=== PATIENT | male | born 1955 | race Two or more races ===

== ENCOUNTER 2017-05-24 21:48 | Inpatient (IN) | payer MEDICAID, MEDICARE ==
--- NOTE | 2017-05-24 22:04 | ED Physician Chart ---
Chief Complaint/HPI - Patient Information Date Seen:: 05/24/17 Time Seen:: 22:00 Chief Complaint:: agitation History of Present Illness:: pt sent from [place] for increase in agitation. staff report says there was concern from staff about labs but it is unclear what the concern was. pt had low cholesterol...rest of labs seem ok. pt arrives alert and w poor ability to amend his own hx. he is alert and speaking but his speech is very thick and hard to understand and his med hx is poor. he appears to deny any acute pain. no cp . no sob. no fever. no n/v/d. no rash. pt seems moderately labile/excitable..yells at times. speaks to self loudly. Allergies:: Allergies Allergy/AdvReac Type Severity Reaction Status Date / Time clozapine [From Clozaril] Allergy Verified 05/24/17 21:58 Historian:: Patient, EMS, Other Review:: Transfer documents Reviewed Review of Systems - Review of Systems General/Constitutional: No fever, No chills, No weight loss, No weakness, No diaphoresis, No edema, No loss of appetite Skin: No skin lesions, No rash, No bruising Head: No headache, No light-headedness Eyes: No loss of vision, No pain, No diplopia ENT: No earache, No nasal drainage, No sore throat, No tinnitus Neck: No neck pain, No swelling, No thyromegaly, No stiffness, No mass noted Cardio Vascular: No chest pain, No palpitations, No PND, No orthopnea, No edema Pulmonary: No SOB, No cough, No sputum, No wheezing GI: No nausea, No vomiting, No diarrhea, No pain, No melena, No hematochezia, No constipation, No hematemesis G/U: No dysuria, No frequency, No hematuria Musculoskeletal: No bone or joint pain, No back pain, No muscle pain Endocrine: No polyuria, No polydipsia Psychiatric: Prior psych history, No depression, Anxiety, No anxiety, No suicidal ideation, Other (agitation) Hematopoietic: No bruising, No lymphadenopathy Allergic/Immuno: No urticaria, No angioedema Neurological: No syncope, No focal symptoms, No weakness, No paresthesia, No headache, No seizure, No dizziness, Confusion, No vertigo Past Medical History - Past Medical History Past Medical History: HTN, DVT/PE, Dyslipidemia, PUD/GERD, Dementia, Other (' encephalopathy', dvt/pe hx of somekind(?when/pt appears on no anticoagulation ) ) Social History: Care Facility Medication: Reviewed Family Medical History - Family Member Mother History Unknown: Yes Physical Exam - Physical Examination General/Constitutional: Awake, Well-developed, well-nourished, Alert, No distress, GCS 15, Non-toxic appearing, Ambulatory Other Gen/Cons comments:: seems demented. speaking often..sometimes to self. is alert. no focal neuro defecits Head: Atraumatic Eyes: Lids, conjuctiva normal, PERRL, EOMI Skin: Nl inspection, No rash, No skin lesions, No ecchymosis, Well hydrated, No lymphadenopathy ENMT: External ears, nose nl, Nasal exam nl, Lips, teeth, gums nl Neck: Nontender, Full ROM w/o pain, No JVD, No nuchal rigidity, No bruit, No mass, No stridor Respiratory: Nl effort/Exclusion, Clear to Auscultation, No Wheeze/Rhonchi/Rales Cardio Vascular: RRR, No murmur, gallop, rubs, NL S1 S2 GI: No tenderness/rebounding/guarding, No organomegaly, No hernia, Normal BS's, Nondistended, No mass/bruits, No McBurney tenderness : No CVA tenderness Extremities: No tenderness or effusion, Full ROM, normal strength in all extremities, No edema, Normal digits & nails Neuro/Psych: Alert/oriented, DTR's symmetric, Normal sensory exam, Normal motor strength, Mood normal, Normal gait, No focal deficits Misc: normal gait, Normal back, No paraspinal tenderness Labs/Radiology/EKG Results - Lab Results Results: Laboratory Tests 05/24/17 05/24/17 05/24/17 22:14 22:14 22:14 WBC 4.6 L RBC 4.74 Hgb 12.7 L Hct 38.7 L MCV 81.7 MCH 26.9 MCHC Differential 32.9 RDW 15.2 Plt Count 209 MPV 6.3 Neutrophils % 45.0 Lymphocytes % 49.9 Monocytes % 4.5 Eosinophils % 0.1 Basophils % 0.5 Sodium 134 L Potassium 3.6 Chloride 104 Carbon Dioxide 24.6 Anion Gap 9.0 BUN 19 Creatinine 0.6 L Est GFR ( Amer) > 60.0 Est GFR (Non-Af Amer) > 60.0 BUN/Creatinine Ratio 31.7 Glucose 119 H Calcium 9.0 Total Bilirubin 0.3 AST 19 ALT 11 Alkaline Phosphatase 78 Troponin I 0.01 Total Protein 7.5 Albumin 3.5 L Globulin 4.0 Albumin/Globulin Ratio 0.9 L Urine Source Urine Color Urine Clarity Urine pH Ur Specific [place] Urine Protein Urine Glucose (UA) Urine Ketones Urine Blood Urine Nitrate Urine Bilirubin Urine Urobilinogen Ur Leukocyte Esterase Urine RBC Urine WBC Ur Epithelial Cells Urine Bacteria Urine Opiates Screen Urine Methadone Screen Ur Barbiturates Screen Ur Tricyclics Screen Ur Phencyclidine Scrn Amphetamines Screen U Methamphetamines Scrn U Benzodiazepines Scrn U Cocaine Metab Screen U Cannabinoids Screen Ethyl Alcohol < 10 05/24/17 05/24/17 22:45 22:45 WBC RBC Hgb Hct MCV MCH MCHC Differential RDW Plt Count MPV Neutrophils % Lymphocytes % Monocytes % Eosinophils % Basophils % Sodium Potassium Chloride Carbon Dioxide Anion Gap BUN Creatinine Est GFR ( Amer) Est GFR (Non-Af Amer) BUN/Creatinine Ratio Glucose Calcium Total Bilirubin AST ALT Alkaline Phosphatase Troponin I Total Protein Albumin Globulin Albumin/Globulin Ratio Urine Source CLEAN C Urine Color YELLOW Urine Clarity CLEAR Urine pH 6.5 Ur Specific [place] <= 1.005 Urine Protein NEGATIVE Urine Glucose (UA) NEGATIVE Urine Ketones NEGATIVE Urine Blood NEGATIVE Urine Nitrate NEGATIVE Urine Bilirubin NEGATIVE Urine Urobilinogen 0.2 Ur Leukocyte Esterase NEGATIVE Urine RBC 0-2 H Urine WBC 0-2 Ur Epithelial Cells OCCASIONAL Urine Bacteria OCCASIONAL Urine Opiates Screen NEGATIVE Urine Methadone Screen NEGATIVE Ur Barbiturates Screen NEGATIVE Ur Tricyclics Screen NEGATIVE Ur Phencyclidine Scrn NEGATIVE Amphetamines Screen NEGATIVE U Methamphetamines Scrn NEGATIVE U Benzodiazepines Scrn NEGATIVE U Cocaine Metab Screen NEGATIVE U Cannabinoids Screen NEGATIVE Ethyl Alcohol - EKG Interpretations EKG Time:: 23:00 Rate & Rhythm: nsr 73 Phelps: 97 Intervals: qtc 432 Comments:: st/ t waves ok ED Septic Shock - . Is Septic Shock (SBP<90, OR Lactate>4 mmol\L) present?: No Reassessment (Disposition) - Reassessment Reassessment:: 11;19p pt is cussing and yelling at staff constantly for last 10-15 min. he is very angry w staff for no discernable reason and his agitation is disrupting dept. he has a nrml order for ativan in his usual meds..we are giving ativan dose at this time. staff have tried to appease him w no effect. pt calm and sleepy after ativan, manageable now. labs obtainable. 11;30p case dw dr breaux ...has decided to admit Reassessment Condition:: Improved - Diagnosis Diagnosis:: 1 aloc 2 agitation - Patient Disposition Admitted to:: Med/Surg Condition at Disposition:: Improved
[2017-05-24 22:25] LABS: % BASOPHILS 0.5 % (0.0-2.0); % EOSINOPHILS 0.1 % (0.0-5.0); % LYMPHOCYTES 49.9 % (20.0-50.0); % MONOCYTES 4.5 % (2.0-10.0); HEMATOCRIT 38.7 % (39.0-49.0); HEMOGLOBIN 12.7 gm/dL (13.2-17.3); MEAN CELL VOLUME 81.7 fl (80-99); MEAN CORPUSCULAR HEMOGLOBIN 26.9 pg (26.0-30.0); MEAN CORPUSCULAR HGB CONC 32.9 pg (28.0-36.0); MEAN PLATELET VOLUME 6.3 fl; NEUTROPHILE ABSOLUTE 2.1 Th/cmm (1.8-8.0); PLATELET COUNT 209 Th/cmm (150-400); RED BLOOD COUNT 4.74 Mil/cmm (4.30-5.70); RED CELL DISTRIBUTION WIDTH 15.2 % (11.5-20.0); WHITE BLOOD COUNT 4.6 Th/cmm (4.8-10.8)
[2017-05-24 22:40] LABS: ALB/GLOB RATIO 0.9 (1.0-1.8); ALKALINE PHOSPHATASE 78 U/L (34-104); BILIRUBIN,TOTAL 0.3 mg/dL (0.3-1.0); BUN - UREA NITROGEN 19 mg/dL (7-25); BUN/CREATININE RATIO 31.7; CARBON DIOXIDE 24.6 mEq/L (21.0-31.0); CHLORIDE 104 mEq/L (98-107); CREATININE - SERUM 0.6 mg/dL (0.7-1.3); GLUCOSE 119 mg/dL (70-105); POTASSIUM SERUM 3.6 mEq/L (3.5-5.1); SGOT 19 U/L (13-39); SGPT/ALT 11 U/L (7-52); SODIUM SERUM 134 mEq/L (136-145)
[2017-05-24 23:12] LABS: URINE BILIRUBIN NEGATIVE (NEGATIVE); URINE BLOOD NEGATIVE (NEGATIVE); URINE GLUCOSE (UA) NEGATIVE (NEGATIVE); URINE KETONE NEGATIVE (NEGATIVE); URINE PH 6.5 (4.6 - 8.0); URINE PROTEIN NEGATIVE (NEGATIVE); URINE UROBILINOGEN 0.2 E.U./dL (0.2 - 1.0)
[2017-05-24 23:19] LABS: URINE BACTERIA OCCASIONAL /hpf (NONE SEEN); URINE COLOR YELLOW; URINE EPITHELIAL CELLS OCCASIONAL /lpf (FEW); URINE RBC 0-2 /hpf (0-5); URINE WBC 0-2 /hpf (0-5)
[2017-05-24 23:27] LABS: AMPHETAMINE URINE NEGATIVE (NEGATIVE); BARBITURATES URINE NEGATIVE (NEGATIVE); METHADONE URINE NEGATIVE (NEGATIVE)
[2017-05-25 07:35] LABS: HEMOGLOBIN 14.4 gm/dL (13.2-17.3); MEAN CORPUSCULAR HEMOGLOBIN 27.1 pg (26.0-30.0); MEAN PLATELET VOLUME 6.7 fl; PLATELET COUNT 229 Th/cmm (150-400); RED BLOOD COUNT 5.31 Mil/cmm (4.30-5.70); RED CELL DISTRIBUTION WIDTH 15.5 % (11.5-20.0); WHITE BLOOD COUNT 4.8 Th/cmm (4.8-10.8)
[2017-05-25 07:42] LABS: ANION GAP 9.7 (7.0-16.0); BUN - UREA NITROGEN 13 mg/dL (7-25); CALCIUM SERUM 9.4 mg/dL (8.6-10.3); CARBON DIOXIDE 25.5 mEq/L (21.0-31.0); CHLORIDE 103 mEq/L (98-107); CHOLESTEROL 95 mg/dL (<200); CREATININE - SERUM 0.5 mg/dL (0.7-1.3); GLUCOSE 76 mg/dL (70-105); POTASSIUM SERUM 3.2 mEq/L (3.5-5.1); SODIUM SERUM 135 mEq/L (136-145); TRIGLYCERIDES 56 mg/dL (<150)
[2017-05-25 08:06] LABS: HEMATOCRIT 43.5 % (39.0-49.0)
[2017-05-25] MEDS: Aspirin 81mg Chewable Tab PO SCH (09:10)
[2017-05-25] MEDS: Multivitamin w/ Minerals Tab PO SCH (09:10)
[2017-05-25] MEDS: Calcium Carb/Vit D 500 mg/200 U Tab PO SCH (09:11)
[2017-05-25] MEDS: Ferrous Sulfate 325 MG TAB PO SCH (09:45)
[2017-05-25 09:47] LABS: NEUTROPHILS 38 % (40-80); PLATELET ESTIMATE ADEQUATE (NORMAL); PLATELET MORPHOLOGY NORMAL (NORMAL); TOTAL CELLS COUNTED 100
[2017-05-25] MEDS: Pancrelipase Cap ECC PO SCH ×3 (09:53→22:57)
--- NOTE | 2017-05-25 21:14 | Consultation ---
DATE OF CONSULTATION: 05/25/2017 SUBJECTIVE: Staff was spoken to. The patient is interviewed. Mood is noted to be irritable. Affect is constricted. Insight and judgment at this time are noted to be ____. The patient is admitted over here for acute agitation after he was transferred from the [facility] facility. Staff were spoken to. The patient is interviewed. The patient is very dysphoric and has been pacing most of the time on the unit and is not able to provide much of information to me. The patient is getting easily agitated. His chart is reviewed. The patient has been on Depakote and Zyprexa, but the patient's compliance is noted to be very poor. The patient at this time is actively responding to internal stimuli. The patient is very paranoid. PAST PSYCHIATRIC HISTORY: Details are not known. MEDICAL HISTORY AND PHYSICAL EXAMINATION: As requested and done by Dr. Pena. SUBSTANCE ABUSE HISTORY: None. PHYSICAL OR SEXUAL ABUSE HISTORY: None. LEGAL PROBLEMS: None at this time. STRENGTHS AND ASSETS: The patient seems to be motivated for treatment. SOCIAL HISTORY: The patient is a resident of the [facility] facility. MENTAL STATUS EXAMINATION: The patient is a 61-year-old disheveled, looking older than his stated age, superficially cooperative. Eye contact is poor. Mood is noted to be irritable. Affect is constricted. Insight and judgment are very much impaired. Coping skills are noted to be poor. The patient is not able to contract for safety. The patient is very paranoid at this time and has been testing the limits. Attention span and concentration are noted to be poor. The patient's behavior is a clear danger to self and others. The patient is trying to ____. DIAGNOSTIC IMPRESSION: AXIS I: Psychosis, not otherwise specified, rule out schizoaffective disorder. PLAN: To give a dose of Zyprexa and Benadryl now IM if the patient refuses medications p.o. and continue the current medications. I encouraged the patient to verbalize the concerns. Thank you Dr. Pena for allowing me to participate in the care of the patient. [facility]# [id number]
[2017-05-25] MEDS: Atorvastatin Calcium 10 MG TAB PO SCH (22:58)
[2017-05-26] MEDS: Aspirin 81mg Chewable Tab PO SCH (08:54)
[2017-05-26] MEDS: Calcium Carb/Vit D 500 mg/200 U Tab PO SCH (08:54)
[2017-05-26] MEDS: Ferrous Sulfate 325 MG TAB PO SCH (08:54)
[2017-05-26] MEDS: Pancrelipase Cap ECC PO SCH ×3 (08:54→21:41)
[2017-05-26] MEDS: Multivitamin w/ Minerals Tab PO SCH (08:54)
[2017-05-26] MEDS ORDERED: VTE Chemical Prophylaxis Screen/Admission MC PRN (18:50)
--- NOTE | 2017-05-26 19:13 | Internal Medicine Prog Note ---
Internal Medicine Objective - Results Result Diagrams: 05/25/17 06:25 05/25/17 06:25 Recent Labs: Laboratory Last Values WBC 4.8 Th/cmm (4.8-10.8) 05/25/17 06:25 RBC 5.31 Mil/cmm (4.30-5.70) 05/25/17 06:25 Hgb 14.4 gm/dL (13.2-17.3) 05/25/17 06:25 Hct 43.5 % (39.0-49.0) D 05/25/17 06:25 MCV 82.0 fl (80-99) 05/25/17 06:25 MCH 27.1 pg (26.0-30.0) 05/25/17 06:25 MCHC Differential 33.0 pg (28.0-36.0) 05/25/17 06:25 RDW 15.5 % (11.5-20.0) 05/25/17 06:25 Plt Count 229 Th/cmm (150-400) 05/25/17 06:25 MPV 6.7 fl 05/25/17 06:25 Neutrophils % 45.0 % (40.0-80.0) 05/24/17 22:14 Lymphocytes % 49.9 % (20.0-50.0) 05/24/17 22:14 Monocytes % 4.5 % (2.0-10.0) 05/24/17 22:14 Eosinophils % 0.1 % (0.0-5.0) 05/24/17 22:14 Basophils % 0.5 % (0.0-2.0) 05/24/17 22:14 Neutrophils (Manual) 38 % (40-80) L 05/25/17 06:25 Lymphocytes 56 % (20-50) H 05/25/17 06:25 Monocytes 2 % (2-10) 05/25/17 06:25 Atypical Lymphocytes 4 % 05/25/17 06:25 Platelet Estimate ADEQUATE (NORMAL) 05/25/17 06:25 Platelet Morphology NORMAL (NORMAL) 05/25/17 06:25 RBC Morph Micro Appear NORMAL (NORMAL) 05/25/17 06:25 Sodium 135 mEq/L (136-145) L 05/25/17 06:25 Potassium 3.2 mEq/L (3.5-5.1) L 05/25/17 06:25 Chloride 103 mEq/L (98-107) 05/25/17 06:25 Carbon Dioxide 25.5 mEq/L (21.0-31.0) 05/25/17 06:25 Anion Gap 9.7 (7.0-16.0) 05/25/17 06:25 BUN 13 mg/dL (7-25) 05/25/17 06:25 Creatinine 0.5 mg/dL (0.7-1.3) L 05/25/17 06:25 Est GFR ( Amer) > 60.0 ml/min (>90) 05/25/17 06:25 Est GFR (Non-Af Amer) > 60.0 ml/min 05/25/17 06:25 BUN/Creatinine Ratio 26.0 05/25/17 06:25 Glucose 76 mg/dL (70-105) 05/25/17 06:25 Calcium 9.4 mg/dL (8.6-10.3) 05/25/17 06:25 Total Bilirubin 0.3 mg/dL (0.3-1.0) 05/24/17 22:14 AST 19 U/L (13-39) 05/24/17 22:14 ALT 11 U/L (7-52) 05/24/17 22:14 Alkaline Phosphatase 78 U/L (34-104) 05/24/17 22:14 Troponin I 0.01 ng/mL (0.01-0.05) 05/24/17 22:14 Total Protein 7.5 gm/dL (6.0-8.3) 05/24/17 22:14 Albumin 3.5 gm/dL (4.2-5.5) L 05/24/17 22:14 Globulin 4.0 gm/dL 05/24/17 22:14 Albumin/Globulin Ratio 0.9 (1.0-1.8) L 05/24/17 22:14 Triglycerides 56 mg/dL (<150) 05/25/17 06:25 Cholesterol 95 mg/dL (<200) 05/25/17 06:25 LDL Cholesterol Direct 61 mg/dL (75-193) L 05/25/17 06:25 HDL Cholesterol 33 mg/dL (23-92) 05/25/17 06:25 Urine Source CLEAN C 05/24/17 22:45 Urine Color YELLOW 05/24/17 22:45 Urine Clarity CLEAR (CLEAR) 05/24/17 22:45 Urine pH 6.5 (4.6 - 8.0) 05/24/17 22:45 Ur Specific [place] <= 1.005 (1.005-1.030) 05/24/17 22:45 Urine Protein NEGATIVE mg/dL (NEGATIVE) 05/24/17 22:45 Urine Glucose (UA) NEGATIVE mg/dL (NEGATIVE) 05/24/17 22:45 Urine Ketones NEGATIVE mg/dL (NEGATIVE) 05/24/17 22:45 Urine Blood NEGATIVE (NEGATIVE) 05/24/17 22:45 Urine Nitrate NEGATIVE (NEGATIVE) 05/24/17 22:45 Urine Bilirubin NEGATIVE (NEGATIVE) 05/24/17 22:45 Urine Urobilinogen 0.2 E.U./dL (0.2 - 1.0) 05/24/17 22:45 Ur Leukocyte Esterase NEGATIVE (NEGATIVE) 05/24/17 22:45 Urine RBC 0-2 /hpf (0-5) H 05/24/17 22:45 Urine WBC 0-2 /hpf (0-5) 05/24/17 22:45 Ur Epithelial Cells OCCASIONAL /lpf (FEW) 05/24/17 22:45 Urine Bacteria OCCASIONAL /hpf (NONE SEEN) 05/24/17 22:45 Urine Opiates Screen NEGATIVE (NEGATIVE) 05/24/17 22:45 Urine Methadone Screen NEGATIVE (NEGATIVE) 05/24/17 22:45 Ur Barbiturates Screen NEGATIVE (NEGATIVE) 05/24/17 22:45 Ur Tricyclics Screen NEGATIVE (NEGATIVE) 05/24/17 22:45 Ur Phencyclidine Scrn NEGATIVE (NEGATIVE) 05/24/17 22:45 Amphetamines Screen NEGATIVE (NEGATIVE) 05/24/17 22:45 U Methamphetamines Scrn NEGATIVE (NEGATIVE) 05/24/17 22:45 U Benzodiazepines Scrn NEGATIVE (NEGATIVE) 05/24/17 22:45 U Cocaine Metab Screen NEGATIVE (NEGATIVE) 05/24/17 22:45 U Cannabinoids Screen NEGATIVE (NEGATIVE) 05/24/17 22:45 Ethyl Alcohol < 10 mg/dL (0-10) 05/24/17 22:14 - Physical Exam Vitals and I&O: Vital Signs Temp 98 F 05/26/17 16:00 Pulse 97 05/26/17 16:00 Resp 18 05/26/17 16:00 BP 124/71 05/26/17 16:00 Pulse Ox 99 05/26/17 16:00 Intake & Output 05/26/17 05/26/17 05/27/17 06:59 18:59 06:59 Intake Total 150 1000 Balance 150 1000 Weight (lbs) 74.843 kg 74.843 kg Intake: Oral 150 1000 Other: # Voids 3 3 # Bowel Movements 0 1 Active Medications: Current Medications Acetaminophen (Tylenol) 650 mg PO Q6HR PRN PRN Reason: Pain or Fever >101 Stop: 07/23/17 23:35 Ascorbic Acid (Vitamin C) 500 mg PO DAILY MAURIZIO Stop: 07/24/17 08:59 Last Admin: 05/26/17 08:54 Dose: 500 mg Aspirin (Aspirin Chewable) 81 mg PO DAILY MAURIZIO Stop: 07/24/17 08:59 Last Admin: 05/26/17 08:54 Dose: 81 mg Atorvastatin Calcium (Lipitor) 5 mg PO HS MAURIZIO PRN Reason: Protocol Stop: 07/24/17 20:59 Last Admin: 05/25/17 22:58 Dose: Not Given Calcium/Vitamin D (Oscal W/Vitamin D) 1 tab PO DAILY MAURIZIO Stop: 07/24/17 08:59 Last Admin: 05/26/17 08:54 Dose: 1 tab Cyanocobalamin (Vitamin B12) 100 mcg PO DAILY MAURIZIO Stop: 07/24/17 08:59 Last Admin: 05/26/17 09:15 Dose: 100 mcg Divalproex Sodium (Depakote Er) 500 mg PO DAILY MAURIZIO PRN Reason: Protocol Stop: 07/24/17 08:59 Last Admin: 05/26/17 08:55 Dose: 500 mg Ferrous Sulfate (Iron) 325 mg PO DAILY MAURIZIO Stop: 07/24/17 08:59 Last Admin: 05/26/17 08:54 Dose: 325 mg Folic Acid (Folate) 1 mg PO DAILY MAURIZIO Stop: 07/24/17 08:59 Last Admin: 05/26/17 08:54 Dose: 1 mg Lorazepam (Ativan) 1 mg IVP Q6H PRN; Protocol PRN Reason: Agitation Stop: 07/23/17 23:32 Last Admin: 05/26/17 09:17 Dose: 1 mg Lorazepam (Ativan) 0.5 mg PO Q6H PRN; Protocol PRN Reason: Anxiety Stop: 07/23/17 23:35 Megestrol Acetate (Megace) 400 mg PO BID MAURIZIO Stop: 07/24/17 08:59 Last Admin: 05/26/17 16:10 Dose: 400 mg Miscellaneous (Vte Chemical Prophylaxis Screen/ Admission) 1 ea [facility] PRN PRN PRN Reason: PROTOCOL Stop: 07/25/17 18:49 Multi-Ingredient Ointment (Pancrelipase 85104 U-5000 [id number] U) 1 ecc PO TID MAURIZIO Stop: 07/24/17 08:59 Last Admin: 05/26/17 16:10 Dose: 1 ecc Olanzapine (Zyprexa) 10 mg PO Q12HR MAURIZIO PRN Reason: Protocol Stop: 07/23/17 23:44 Last Admin: 05/26/17 08:55 Dose: 10 mg Tamsulosin HCl (Flomax) 0.4 mg PO HS MAURIZIO Stop: 07/24/17 20:59 Last Admin: 05/25/17 22:58 Dose: Not Given Topiramate (Topamax) 100 mg PO BID MAURIZIO Stop: 07/24/17 08:59 Last Admin: 05/26/17 16:10 Dose: 100 mg Vitamin D (Vitamin D) 800 iu PO DAILY MAURIZIO Stop: 07/24/17 08:59 Last Admin: 05/26/17 08:54 Dose: 800 iu Zolpidem Tartrate (Ambien) 5 mg PO HS PRN PRN Reason: Insomnia Stop: 07/23/17 23:35
[2017-05-26] MEDS: Atorvastatin Calcium 10 MG TAB PO SCH (21:00)
--- NOTE | 2017-05-27 03:27 | History & Physical ---
ADMIT DATE: 05/26/2017 HISTORY OF PRESENT ILLNESS: This patient was admitted for increasing agitation to Geropsych Unit and I was asked to do the history and physical on him and the patient essentially has a history of hypertension, history of hyperlipidemia, history of peptic ulcer disease, dementia, encephalopathy, and apparently has had a history of DVT and PE in the past. MEDICATIONS: See the reconciliation medication. The patient apparently is not able to tell me much of the story. REVIEW OF SYSTEMS: Difficult. The patient basically complaining of no pain, no fever, no chills, no rigors. Essentially otherwise negative. PAST MEDICAL HISTORY: As enumerated above. FAMILY HISTORY: Unremarkable. PHYSICAL EXAMINATION: GENERAL: Awake, alert, well-nourished male, not in acute distress. VITAL SIGNS: Normal. HEAD: Normal. ENT: Normal. NECK: Supple, nontender. LUNGS: Clear. CARDIOVASCULAR SYSTEM: S1, S2 heard. ABDOMEN: Soft. Bowel sounds are heard. CENTRAL NERVOUS SYSTEM: Grossly normal. LABORATORY DATA: WBC was 4.6, hemoglobin of 12.7, hematocrit was 38. Electrolytes were normal. DIAGNOSES: Altered level of consciousness, agitation, history of hypertension, history of hyperlipidemia, history of pulmonary embolism in the past, history of peptic ulcer disease, history of dementia. The patient is going to be admitted and I will follow medically along with Dr. Breaux. JOB# [id number]
--- NOTE | 2017-05-27 08:54 | General Progress Note ---
Subjective - Review of Systems Events since last encounter: patient with no acute distress Objective - Results Result Diagrams: 05/25/17 06:25 05/25/17 06:25 Recent Labs: Laboratory Last Values WBC 4.8 Th/cmm (4.8-10.8) 05/25/17 06:25 RBC 5.31 Mil/cmm (4.30-5.70) 05/25/17 06:25 Hgb 14.4 gm/dL (13.2-17.3) 05/25/17 06:25 Hct 43.5 % (39.0-49.0) D 05/25/17 06:25 MCV 82.0 fl (80-99) 05/25/17 06:25 MCH 27.1 pg (26.0-30.0) 05/25/17 06:25 MCHC Differential 33.0 pg (28.0-36.0) 05/25/17 06:25 RDW 15.5 % (11.5-20.0) 05/25/17 06:25 Plt Count 229 Th/cmm (150-400) 05/25/17 06:25 MPV 6.7 fl 05/25/17 06:25 Neutrophils % 45.0 % (40.0-80.0) 05/24/17 22:14 Lymphocytes % 49.9 % (20.0-50.0) 05/24/17 22:14 Monocytes % 4.5 % (2.0-10.0) 05/24/17 22:14 Eosinophils % 0.1 % (0.0-5.0) 05/24/17 22:14 Basophils % 0.5 % (0.0-2.0) 05/24/17 22:14 Neutrophils (Manual) 38 % (40-80) L 05/25/17 06:25 Lymphocytes 56 % (20-50) H 05/25/17 06:25 Monocytes 2 % (2-10) 05/25/17 06:25 Atypical Lymphocytes 4 % 05/25/17 06:25 Platelet Estimate ADEQUATE (NORMAL) 05/25/17 06:25 Platelet Morphology NORMAL (NORMAL) 05/25/17 06:25 RBC Morph Micro Appear NORMAL (NORMAL) 05/25/17 06:25 Sodium 135 mEq/L (136-145) L 05/25/17 06:25 Potassium 3.2 mEq/L (3.5-5.1) L 05/25/17 06:25 Chloride 103 mEq/L (98-107) 05/25/17 06:25 Carbon Dioxide 25.5 mEq/L (21.0-31.0) 05/25/17 06:25 Anion Gap 9.7 (7.0-16.0) 05/25/17 06:25 BUN 13 mg/dL (7-25) 05/25/17 06:25 Creatinine 0.5 mg/dL (0.7-1.3) L 05/25/17 06:25 Est GFR ( Amer) > 60.0 ml/min (>90) 05/25/17 06:25 Est GFR (Non-Af Amer) > 60.0 ml/min 05/25/17 06:25 BUN/Creatinine Ratio 26.0 05/25/17 06:25 Glucose 76 mg/dL (70-105) 05/25/17 06:25 Calcium 9.4 mg/dL (8.6-10.3) 05/25/17 06:25 Total Bilirubin 0.3 mg/dL (0.3-1.0) 05/24/17 22:14 AST 19 U/L (13-39) 05/24/17 22:14 ALT 11 U/L (7-52) 05/24/17 22:14 Alkaline Phosphatase 78 U/L (34-104) 05/24/17 22:14 Troponin I 0.01 ng/mL (0.01-0.05) 05/24/17 22:14 Total Protein 7.5 gm/dL (6.0-8.3) 05/24/17 22:14 Albumin 3.5 gm/dL (4.2-5.5) L 05/24/17 22:14 Globulin 4.0 gm/dL 05/24/17 22:14 Albumin/Globulin Ratio 0.9 (1.0-1.8) L 05/24/17 22:14 Triglycerides 56 mg/dL (<150) 05/25/17 06:25 Cholesterol 95 mg/dL (<200) 05/25/17 06:25 LDL Cholesterol Direct 61 mg/dL (75-193) L 05/25/17 06:25 HDL Cholesterol 33 mg/dL (23-92) 05/25/17 06:25 Urine Source CLEAN C 05/24/17 22:45 Urine Color YELLOW 05/24/17 22:45 Urine Clarity CLEAR (CLEAR) 05/24/17 22:45 Urine pH 6.5 (4.6 - 8.0) 05/24/17 22:45 Ur Specific [place] <= 1.005 (1.005-1.030) 05/24/17 22:45 Urine Protein NEGATIVE mg/dL (NEGATIVE) 05/24/17 22:45 Urine Glucose (UA) NEGATIVE mg/dL (NEGATIVE) 05/24/17 22:45 Urine Ketones NEGATIVE mg/dL (NEGATIVE) 05/24/17 22:45 Urine Blood NEGATIVE (NEGATIVE) 05/24/17 22:45 Urine Nitrate NEGATIVE (NEGATIVE) 05/24/17 22:45 Urine Bilirubin NEGATIVE (NEGATIVE) 05/24/17 22:45 Urine Urobilinogen 0.2 E.U./dL (0.2 - 1.0) 05/24/17 22:45 Ur Leukocyte Esterase NEGATIVE (NEGATIVE) 05/24/17 22:45 Urine RBC 0-2 /hpf (0-5) H 05/24/17 22:45 Urine WBC 0-2 /hpf (0-5) 05/24/17 22:45 Ur Epithelial Cells OCCASIONAL /lpf (FEW) 05/24/17 22:45 Urine Bacteria OCCASIONAL /hpf (NONE SEEN) 05/24/17 22:45 Urine Opiates Screen NEGATIVE (NEGATIVE) 05/24/17 22:45 Urine Methadone Screen NEGATIVE (NEGATIVE) 05/24/17 22:45 Ur Barbiturates Screen NEGATIVE (NEGATIVE) 05/24/17 22:45 Ur Tricyclics Screen NEGATIVE (NEGATIVE) 05/24/17 22:45 Ur Phencyclidine Scrn NEGATIVE (NEGATIVE) 05/24/17 22:45 Amphetamines Screen NEGATIVE (NEGATIVE) 05/24/17 22:45 U Methamphetamines Scrn NEGATIVE (NEGATIVE) 05/24/17 22:45 U Benzodiazepines Scrn NEGATIVE (NEGATIVE) 05/24/17 22:45 U Cocaine Metab Screen NEGATIVE (NEGATIVE) 05/24/17 22:45 U Cannabinoids Screen NEGATIVE (NEGATIVE) 05/24/17 22:45 Ethyl Alcohol < 10 mg/dL (0-10) 05/24/17 22:14 - Physical Exam Vitals and I&O: Vital Signs Temp 97.6 F 05/27/17 04:00 Pulse 88 05/27/17 04:00 Resp 18 05/27/17 04:00 BP 130/74 05/27/17 04:00 Pulse Ox 97 05/27/17 04:00 Intake & Output 05/26/17 05/27/17 05/27/17 18:59 06:59 18:59 Intake Total 1000 600 Balance 1000 600 Weight (lbs) 74.843 kg 60.146 kg Intake: Oral 1000 600 Other: # Voids 3 4 # Bowel Movements 1 0 Active Medications: Current Medications Acetaminophen (Tylenol) 650 mg PO Q6HR PRN PRN Reason: Pain or Fever >101 Stop: 07/23/17 23:35 Ascorbic Acid (Vitamin C) 500 mg PO DAILY MAURIZIO Stop: 07/24/17 08:59 Last Admin: 05/26/17 08:54 Dose: 500 mg Aspirin (Aspirin Chewable) 81 mg PO DAILY MAURIZIO Stop: 07/24/17 08:59 Last Admin: 05/26/17 08:54 Dose: 81 mg Atorvastatin Calcium (Lipitor) 5 mg PO HS MAURIZIO PRN Reason: Protocol Stop: 07/24/17 20:59 Last Admin: 05/26/17 21:00 Dose: Not Given Calcium/Vitamin D (Oscal W/Vitamin D) 1 tab PO DAILY MAURIZIO Stop: 07/24/17 08:59 Last Admin: 05/26/17 08:54 Dose: 1 tab Cyanocobalamin (Vitamin B12) 100 mcg PO DAILY MAURIZIO Stop: 07/24/17 08:59 Last Admin: 05/26/17 09:15 Dose: 100 mcg Divalproex Sodium (Depakote Er) 500 mg PO DAILY MAURIZIO PRN Reason: Protocol Stop: 07/24/17 08:59 Last Admin: 05/26/17 08:55 Dose: 500 mg Ferrous Sulfate (Iron) 325 mg PO DAILY MAURIZIO Stop: 07/24/17 08:59 Last Admin: 05/26/17 08:54 Dose: 325 mg Folic Acid (Folate) 1 mg PO DAILY MAURIZIO Stop: 07/24/17 08:59 Last Admin: 05/26/17 08:54 Dose: 1 mg Lorazepam (Ativan) 1 mg IVP Q6H PRN; Protocol PRN Reason: Agitation Stop: 07/23/17 23:32 Last Admin: 05/26/17 09:17 Dose: 1 mg Lorazepam (Ativan) 0.5 mg PO Q6H PRN; Protocol PRN Reason: Anxiety Stop: 07/23/17 23:35 Last Admin: 05/26/17 21:44 Dose: 0.5 mg Megestrol Acetate (Megace) 400 mg PO BID MAURIZIO Stop: 07/24/17 08:59 Last Admin: 05/26/17 16:10 Dose: 400 mg Miscellaneous (Vte Chemical Prophylaxis Screen/ Admission) 1 ea [facility] PRN PRN PRN Reason: PROTOCOL Stop: 07/25/17 18:49 Multi-Ingredient Ointment (Pancrelipase 94766 U-[id number] [id number] U) 1 ecc PO TID MAURIZIO Stop: 07/24/17 08:59 Last Admin: 05/26/17 21:41 Dose: 1 ecc Olanzapine (Zyprexa) 10 mg PO Q12HR MAURIZIO PRN Reason: Protocol Stop: 07/23/17 23:44 Last Admin: 05/26/17 21:41 Dose: 10 mg Tamsulosin HCl (Flomax) 0.4 mg PO HS MAURIZIO Stop: 07/24/17 20:59 Last Admin: 05/26/17 21:41 Dose: 0.4 mg Topiramate (Topamax) 100 mg PO BID MAURIZIO Stop: 07/24/17 08:59 Last Admin: 05/26/17 16:10 Dose: 100 mg Vitamin D (Vitamin D) 800 iu PO DAILY MAURIZIO Stop: 07/24/17 08:59 Last Admin: 05/26/17 08:54 Dose: 800 iu Zolpidem Tartrate (Ambien) 5 mg PO HS PRN PRN Reason: Insomnia Stop: 07/23/17 23:35 Last Admin: 05/26/17 21:44 Dose: 5 mg General: No acute distress HEENT: Atraumatic Cardiovascular: Regular rate, Normal S1, Normal S2 Assessment/Plan - Problem List Patient Problems: All Active Problems Altered level of consciousness (Acute) R40.4 H/O: HTN (hypertension) (Acute) Z86.79 HYPERLIPIDEMIA (Acute) History of pulmonary embolism (Acute) Z86.711 Peptic ulcer disease (Acute) K27.9 h/o dementia (Acute) - Plan Plan: cpm
[2017-05-27] MEDS: Pancrelipase Cap ECC PO SCH ×2 (09:22→14:15)
[2017-05-27] MEDS: Ferrous Sulfate 325 MG TAB PO SCH (09:23)
[2017-05-27] MEDS: Calcium Carb/Vit D 500 mg/200 U Tab PO SCH (09:23)
[2017-05-27] MEDS: Multivitamin w/ Minerals Tab PO SCH (09:23)
[2017-05-27] MEDS: Aspirin 81mg Chewable Tab PO SCH (09:23)
--- NOTE | 2017-06-02 14:01 | Discharge Summary ---
DATE OF DISCHARGE: 05/27/2017 INITIAL ADMITTING DIAGNOSES: 1. Altered level of consciousness. 2. Agitation. 3. Hypertension. 4. Hyperlipidemia. 5. History of pulmonary embolism in the past. 6. History of peptic ulcer disease. 7. History of dementia. The patient was admitted on May 24 ____. The patient is seen by Dr. Breaux for psychiatric ____. The patient medically was cleared and also psychiatrically more stable. On May 27, the patient was sent to [facility] where ____ will be following him. CONDITION AT THE TIME OF DISCHARGE: Stable. JOB# [id number]
== END 2017-05-27 21:20 | disposition home or self-care (01) | DRG 52 ==
LOC: ER 21:48 → MSI 23:30
PROVIDERS: ADMIT Internal Medicine; ATTEND Internal Medicine
DX: G92 Toxic encephalopathy (principal); F03.90 Unspecified dementia, unspecified severity, without behavioral disturbance, psychotic disturbance, mood disturbance, and anxiety; I10 Essential (primary) hypertension; E78.5 Hyperlipidemia, unspecified; F29 Unspecified psychosis not due to a substance or known physiological condition; Z88.8 Allergy status to other drugs, medicaments and biological substances; Z86.718 Personal history of other venous thrombosis and embolism; Z87.11 Personal history of peptic ulcer disease; Z86.711 Personal history of pulmonary embolism
CPT/HCPCS: 36415-UA; 80048-TC; 80053-TC; 80061-TC; 80307; 80320-TC; 81001-TC; 84484-TC; 85007-TC; 85025-TC; 85027-TC; 93005; J1200; J2060; Z7610